=== PATIENT | male | born 1990 | race Hispanic/Latino ===

== ENCOUNTER 2017-02-14 04:24 | Emergency (ER) | payer OTHER ==
[~2017-02-14] VITALS: Ht 167.6 cm; Wt 100.0 kg
[2017-02-14 04:36] VITALS: BP 146/78
[2017-02-14] MEDS ORDERED: LEVO150T7 PO (04:40)
[2017-02-14] MEDS ORDERED: HYDROmorphone HCL 1 MG/ML SYRINGE (J1170) IV ONE (05:30)
--- NOTE | 2017-02-14 05:40 | REPUSA ---
CLINICAL HISTORY: Headaches. TECHNIQUE: Multiple axial brain CT scan sections were obtained from base to vertex without contrast a dministration. 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 The study shows normal configuration of sella turcica. There are no intra or extra-axial collections. There is no mass effect or midline shift. There is no evidence of hematoma formation. No hydrocephal us is present. No abnormal calcifications are noted. No significant abnormalities are seen either in the posterior fossa or supratentorial compartment. The sinuses and mastoid air cells are patent. 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 No evidence of acute intracranial pathology. Thank you for your kind referral of this patient.
[2017-02-14] MEDS ORDERED: dexameTHASONE 20 MG/5 ML VIAL (J1100) IV ONE (05:45)
--- NOTE | 2017-02-14 10:22 | ED PDOC ---
Post-Departure Follow-Up radiology report faxed to [facility] Liz Christian MD Feb 14, 2017 10:22
[2017-02-14] MEDS ORDERED: FISH100049 PO (20:37)
[2017-02-14] MEDS ORDERED: VITA100072 PO (20:37)
== END 2017-02-14 06:14 | disposition home or self-care (01) ==
LOC: M ED 04:24
DX: G44.329 Chronic post-traumatic headache, not intractable (principal); E03.9 Hypothyroidism, unspecified; Z87.820 Personal history of traumatic brain injury; Z98.2 Presence of cerebrospinal fluid drainage device; Z79.899 Other long term (current) drug therapy
CPT/HCPCS: 70450; 96374; 96375; 99283; J1100; J1170

== ENCOUNTER 2017-02-14 20:25 | Emergency (ER) | payer OTHER ==
[~2017-02-14] VITALS: Ht 165.1 cm; Wt 100.9 kg
[~2017-02-14 20:25] MED LIST: LEVO150T7 PO
[2017-02-14] MEDS ORDERED: FISH100049 PO (20:37)
[2017-02-14] MEDS ORDERED: VITA100072 PO (20:37)
[2017-02-14] MEDS ORDERED: diphenhydrAMINE INJ 50MG/ML VIAL (J1200) IV ONE (21:00)
[2017-02-14] MEDS ORDERED: KETOROLAC 30 MG/ML VIAL (J1885) IV ONE (21:00)
[2017-02-14] MEDS ORDERED: METOCLOPRAMIDE INJ 10MG/2ML VIAL (J2765) IV ONE (21:00)
[2017-02-14] MEDS ORDERED: HYDROmorphone HCL 1 MG/ML SYRINGE (J1170) IV ONE (22:00)
[2017-02-14 22:23] VITALS: BP 129/73
== END 2017-02-14 22:58 | disposition home or self-care (01) ==
LOC: M ED 20:25
DX: G43.909 Migraine, unspecified, not intractable, without status migrainosus (principal); E03.9 Hypothyroidism, unspecified; Z98.2 Presence of cerebrospinal fluid drainage device
CPT/HCPCS: 96374; 96375; 99283; J1170; J1200; J1885; J2765

== ENCOUNTER 2017-08-26 11:41 | Emergency (ER) | payer OTHER ==
[2017-08-26] MEDS: NS 1,000 ML IV (12:37)
[2017-08-26] MEDS: KETOROLAC 30 MG/ML VIAL (J1885) IV (12:38)
[2017-08-26] MEDS: METOCLOPRAMIDE INJ 10MG/2ML VIAL (J2765) IV (12:38)
[2017-08-26] MEDS: diphenhydrAMINE INJ 50MG/ML VIAL (J1200) IV (12:38)
[2017-08-26 12:40] LABS: BASO % 0.5 % (0.0-1.0); EOS # 0.2 10^3/uL (0.0-0.50); EOS % 2.4 % (0.0-3.0); HEMATOCRIT 43.2 % (42.0-52.0); HEMOGLOBIN 15.2 g/dl (14.0-18.0); IMMATURE GRANULOCYTE % 0.3 % (0-0); LYMPH # 2.5 10^3/uL (1.5-6.5); LYMPH % 32.5 % (24.0-44.0); MEAN CORPUSCULAR HEMOGLOBIN 30.5 pg (27.0-33.0); MEAN CORPUSCULAR HGB CONC 35.2 g/dl (32.0-36.5); MEAN CORPUSCULAR VOLUME 86.7 fl (80.0-96.0); MONO # 0.6 10^3/uL (0.0-0.8); MONO % 7.3 % (0.0-5.0); NEUTROPHILS # 4.3 10^3/uL (1.8-7.7); PLATELET COUNT, AUTOMATED 302 10^3/uL (150-450); RED BLOOD COUNT 4.98 10^6/uL (4.30-6.10); WHITE BLOOD COUNT 7.6 10^3/uL (4.0-10.0)
[2017-08-26 12:55] LABS: ANION GAP 4 MEQ/L (8-16); BLOOD UREA NITROGEN 13 MG/DL (7-18); C REACTIVE PROTEIN QUANTITATIV < 0.30 MG/DL (0.00-0.30); CALCIUM LEVEL 8.8 MG/DL (8.5-10.1); CARBON DIOXIDE LEVEL 32 MEQ/L (21-32); CHLORIDE LEVEL 104 MEQ/L (98-107); CREATININE FOR GFR 1.14 MG/DL (0.70-1.30); GLOMERULAR FILTRATION RATE > 60.0 (>60); GLUCOSE, FASTING 99 MG/DL (70-100); SODIUM LEVEL 140 MEQ/L (136-145)
[2017-08-26] MEDS: SUMAtriptan SUCCINATE 6 MG/0.5 ML VIAL SC (14:07)
[2017-08-26] MEDS: PERCOCET 5MG/325MG TAB PO (14:43)
== END 2017-08-26 14:49 | disposition home or self-care (01) ==
LOC: M ED 11:41
DX: G43.009 Migraine without aura, not intractable, without status migrainosus (principal); E07.9 Disorder of thyroid, unspecified; Z79.890 Hormone replacement therapy; Z98.890 Other specified postprocedural states
CPT/HCPCS: J1200

== ENCOUNTER → 2017-11-17 | Outpatient (REF) | payer OTHER ==
[2017-11-17 13:46] LABS: BASO # 0.1 10^3/uL (0.0-0.2); BASO % 0.7 % (0.0-1.0); EOS # 0.2 10^3/uL (0.0-0.50); EOS % 2.1 % (0.0-3.0); HEMATOCRIT 44.4 % (42.0-52.0); HEMOGLOBIN 15.2 g/dl (13.5-17.5); IMMATURE GRANULOCYTE % 0.5 % (0-3.0); LYMPH # 2.7 10^3/uL (1.5-6.5); LYMPH % 37.6 % (24.0-44.0); MEAN CORPUSCULAR HEMOGLOBIN 30.2 pg (27.0-33.0); MEAN CORPUSCULAR HGB CONC 34.2 g/dl (32.0-36.5); MEAN CORPUSCULAR VOLUME 88.3 fl (80.0-96.0); MONO # 0.5 10^3/uL (0.0-0.8); MONO % 6.2 % (0.0-5.0); NEUTROPHILS # 3.9 10^3/uL (1.8-7.7); NEUTROPHILS % 52.9 % (36.0-66.0); PLATELET COUNT, AUTOMATED 296 10^3/uL (150-450); RED BLOOD COUNT 5.03 10^6/uL (4.30-6.10); RED CELL DISTRIBUTION WIDTH 12.9 % (11.5-14.5); WHITE BLOOD COUNT 7.3 10^3/uL (4.0-10.0)
[2017-11-17 14:03] LABS: ALBUMIN 4.3 GM/DL (3.2-5.2); ALBUMIN/GLOBULIN RATIO 1.13 (1.00-1.93); ALKALINE PHOSPHATASE 73 U/L (45-117); ALT/SGPT 104 U/L (12-78); ANION GAP 8 MEQ/L (8-16); AST/SGOT 33 U/L (7-37); BILIRUBIN,TOTAL 0.3 MG/DL (0.2-1.0); BLOOD UREA NITROGEN 12 MG/DL (7-18); CALCIUM LEVEL 9.7 MG/DL (8.5-10.1); CARBON DIOXIDE LEVEL 26 MEQ/L (21-32); CHLORIDE LEVEL 108 MEQ/L (98-107); CREATININE FOR GFR 1.16 MG/DL (0.70-1.30); GLOMERULAR FILTRATION RATE > 60.0 (>60); GLUCOSE, FASTING 113 MG/DL (70-100); POTASSIUM SERUM 4.4 MEQ/L (3.5-5.1); SODIUM LEVEL 142 MEQ/L (136-145); TOTAL PROTEIN 8.1 GM/DL (6.4-8.2); VALPROIC ACID (DEPAKOTE) 3.7 UG/ML (50.0-100.0)
[2017-11-21 14:12] LABS: TOPIRAMATE LEVEL 3.1 ug/mL (2.0-25.0)
== END ==
LOC: M LABNEURO 10:52
DX: R51 Headache (principal)